=== PATIENT | male | born 1980 | race Caucasian/White ===

== ENCOUNTER 2018-07-25 20:35 | Inpatient (IN) | payer OTHER ==
[~2018-07-25] VITALS: Ht 193 cm; Wt 100.0 kg
--- NOTE | ~2018-07-25 | HEMODYNAMI ---
PATIENT:MUKUL HERNANDEZ MEDICAL RECORD: [id number] : 82 [id number] ADMISSION DATE: 07/25/18 Generatedon:07/26/20189:36 Patient name: MUKUL HERNANDEZ Patient #: [id number] SSN: : 1980 Date of study: 07/26/2018 Page: Of Hemodynamic Procedure Report Patient Data Patient Demographics Procedure consent was obtained First Name: MUKUL Gender: Male Last Name: MARY : 1980 Middle Initial: D Age: 38 year(s) Patient #: [id number] Race: Unknown Additional ID: [id number] Contact details Address: [address] [place] [address] State: [facility]: [place] Zip code: [address] Past Medical History Allergies: No known allergies Admission Admission Data Admission Date: 07/25/2018 Admission Time: 22:02 Room #: D.2122 Height (in.): 75.98 BSA: 2.31 (m2) Height (cm.): 193 BMI: 26.85 (kg/m2) Weight (lbs.): 220.46 Weight (kg.): 100 Lab Results Lab Result Date: 07/26/2018 Lab Result Time: 0:00 Biochemistry Name Units Result Min Max BUN mg/dl 13 --(--*-)-- 7 18 Creatinine mg/dl 1.1 --(--*-)-- 0.6 1.3 CBC Name Units Result Min Max Hematocrit % 38.7 *-(----)-- 42 54 Hemoglobin g/dl 13 -*(----)-- 13.5 17.5 Procedure Procedure Types Cath Procedure Diagnostic Procedure C [facility] w/Coronaries Procedure Description Procedure Date Procedure Date: 07/26/2018 Procedure Start Time: 9:22 Procedure End Time: 9:35 Procedure Staff Name Function Reg Dickerson MD Performing Physician Zenaida Hernández RT Monitor Cory Falcon RN Nurse Perla Counts RT Scrub Procedure Data Cath Procedure Fluoroscopy Diagnostic fluoroscopy Total fluoroscopy Time: 0.9 time: 0.9 min min Diagnostic fluoroscopy Total fluoroscopy dose: 273 dose: 273 mGy mGy Contrast Material Contrast Material Type Amount (ml) Isovue 300 31 Entry Location Entry Primary Successful Side Size Upsize Upsize Entry Closure Succes sful Closure Location (Fr) 1 (Fr) 2 (Fr) Remarks Device Remarks Femoral Right 5 Fr Exoseal artery Estimated blood loss: 5 ml Diagnostic catheters Device Type Used For End Catheter Placement MULTIPACK JL 4.0 5Fr Left Coronary catheter Angiography MULTIPACK 3DRC 5Fr Right Coronary catheter Angiography MULTIPACK Pigtail 5 Fr LV Angiography catheter Procedure Complications No complications Procedure Medications Medication Administration Route Dosage 0.9% NaCl I.V. 100 ml/hr Oxygen etCO2 Nasal cannula 2 l/min Heparin Flush Bag added to field 2 bags (1000units/500ml NS) Lidocaine 2% added to field 20 Versed I.V. 2 mg Fentanyl I.V. 100 mcg Versed I.V. 2 mg Versed I.V. 2 mg Hemodynamics Rest BSA: 2.31 (m2) O2 Consumption: Estimated: 288.75 (ml/min) O2 Consumption indexed : Estimated:125 (ml/min/m) Heart Rate: 75 (bpm) Pressure Samples Time Site Value (mmHg) Purpose Heart Use Rate(bpm) 9:27 LV 119/9,12 EDP 69 9:27 AO 107/70(89) Pullback 65 9:27 LV 112/10,11 Pullback 65 Gradients Valve Time Site 1 Site 2 Mean SEP/DFP Peak To Heart Use (mmHg) (sec/min) Peak Rate (mmHg) (bpm) Aortic 9:27 LV AO 4 15 5 65 112/10,11 107/70(89) Calculations Valve P-P Mean Valve Index Valve Source Name Gradient Area Flow (cm2) Aortic 5 4 5 4 Snapshots Pre Cath Intra NCS Post Cath Vital Signs Time Heart Resp SPO2 etCO2 NIBP (mmHg) Rhythm Pain Sedation Rate (ipm) (%) (mmHg) Status Level (bpm) 9:15:28 69 15 99 0 137/83(98) NSR 0 (11) 10(A) , No pain 9:19:42 64 14 79 32.1 126/86(108) NSR 0 (11) 10(A) , No pain 9:23:52 64 9 93 27.6 127/90(111) NSR 0 (11) 10(A) , No pain 9:28:08 68 12 92 40.4 118/72(95) NSR 0 (11) 9(A) , No pain 9:32:22 64 14 93 13.4 128/84(94) NSR 0 (11) 9(A) , No pain Medications Time Medication Route Dose Verified Delivered Reason Notes Effe ctiveness by by 9:14:47 0.9% NaCl I.V. 100 Cory Cory Per ml/hr Terrie Falcon physician RN RN 9:14:58 Oxygen etCO2 2 Cory Cory for low 02 Nasal l/min Lorigan Lorigan sats cannula RN RN 9:15:10 Heparin Flush added 2 Cory Cory used for Bag to bags Lorigan Lorigan procedure (1000units/500ml field RN RN NS) 9:15:20 Lidocaine 2% added 20ml Cory Cory for local to vial Lorigan Lorigan anesthetic field RN RN 9:19:14 Versed I.V. 2 mg Cory Cory for Lorigan Lorigan sedation RN RN 9:19:22 Fentanyl I.V. 100 Cory Cory for mcg Lorigan Lorigan sedation RN RN 9:20:37 Versed I.V. 2 mg Cory Cory for Lorigan Lorigan sedation RN RN 9:22:55 Versed I.V. 2 mg Cory Cory for Lorigan Lorigan sedation RN peanut cleaner Log Time Note 8:51:36 Time tracking: Call back (After hours or weekends) 8:51:40 Plan of Care:Hemodynamics will remain stable., Cardiac rhythm will remain stable., Comfort level will be maintained., Respiratory function will remain adequate., Patient/ family verbilizes understanding of procedure., Procedure tolerated without complication., Recovers from procedure without complications.. 8:55:25 Perla Pretty RT(R) sent for patient. Start room use. 8:56:18 Signed procedure consent form obtained from patient. 8:57:12 Patient allergic to No known allergies 8:57:44 Lab Result : BUN 13 mg/dl 8:57:44 Lab Result : Hemoglobin 13 g/dl 8:57:44 Lab Result : Creatinine 1.1 mg/dl 8:57:44 Lab Result : Hematocrit 38.7 % 8:57:54 Patient Weight : 220.46 lbs 8:57:59 Patient Height : 75.98 inches 9:03:29 Patient received from Med II to CCL 1 Alert and oriented. Tansferred to table in Supine position. 9:03:30 Warm blankets applied, and noemí hugger turned on for patient comfort. 9:03:30 Correct patient and procedure confirmed by team. 9:03:31 ECG and BP/O2 sat monitors applied to patient. 9:14:22 Vital chart was started 9:14:25 Rhythm: sinus rhythm 9:14:27 Full Disclosure recording started 9:14:47 0.9% NaCl 100 ml/hr I.V. was administered by Cory Falcon RN; Per physician; 9:14:52 H&P Date Dictated: 07/25/2018 Within 30 days and on chart.. 9:14:53 Pre-procedure instructions explained to patient. 9:14:54 Pre-op teaching completed and patient verbalized understanding. 9:14:55 Family in patients room. 9:14:57 Patient NPO since Midnight. 9:14:58 Oxygen 2 l/min etCO2 Nasal cannula was administered by Cory Falcon RN; for low 02 sats; 9:14:59 Is the patient allergic to Iodine/contrast media? No. 9:15:04 Is patient on blood thinner?No 9:15:06 Patient diabetic? No. 9:15:09 Previous problem with sedation/anesthesia? No ? 9:15:10 Heparin Flush Bag (1000units/500ml NS) 2 bags added to field was administered by Cory Falcon RN; used for procedure; 9:15:10 Snore? Yes 9:15:11 Sleep apnea? No 9:15:12 Deviated septum? No 9:15:12 Opens mouth fully? Yes 9:15:13 Sticks out tongue? Yes 9:15:15 Airway obstruction? No ? 9:15:16 Dentures? No ? 9:15:19 Pre procedure: right dorsailis pedis pulse 2+ Normal; easily identifiable; not easily obliterated 9:15:20 Lidocaine 2% 20ml vial added to field was administered by Cory Falcon RN; for local anesthetic; 9:15:20 Patient pain scale 0/10 ?. 9:15:25 IV patent on arrival in right wrist with 0.9% NaCl at KVO. 9:15:27 Lab results completed and on chart. 9:15:31 Right groin area was prepped with chlora-prep and draped in sterile fashion 9:15:32 Alarms reviewed by R. N. 9:15:32 Sharps counted by scrub and verified by R.N. 9:15:36 Final Timeout: patient, procedure, and site verified with staff and physician. All members of the team are in agreement. 9:15:39 Right groin site verified by team. 9:15:44 Maximum allowable Isovue 300 dose 300ml. Physician notified. (300ml for normal creatinines. For patients with creatinine of 1.7 or higher multiply weight(kg) x 5 divided by creatinine.) 9:15:48 Fire Safety Assessment: A--An alcohol-based skin anteseptic being used preoperatively., C--Open oxygen or nitrous oxide is being used., D--An ESU, laser, or fiber-optic light is being used. 9:15:51 Physical assessment completed. ASA score P 2 - A patient with mild systemic disease as per Reg Dickerson MD. 9:15:54 Sedation plan: IV Moderate Sedation Medication:Versed, Fentanyl 9:18:28 Use device set Femoral Dx 9:18:29 ACIST Syringe (01369) opened to sterile field. 9:18:30 Bag Decanter (2002) opened to sterile field. 9:18:30 Medline Cath Pack ([id number]) opened to sterile field. 9:18:31 DIAGNOSTIC WIRE .035 260cm J wire (371911) opened to sterile field. 9:18:32 ACIST Hand Control (17973) opened to sterile field. 9:18:32 ACIST Manifold (64824) opened to sterile field. 9:18:33 DIAGNOSTIC Multipack 5Fr catheter set ([id number]) opened to sterile field. 9:18:33 Tegaderm 4 x 4 (1626W) opened to sterile field. 9:18:34 SHEATH 5FR [place] (BHD415) opened to sterile field. 9:19:14 Versed 2 mg I.V. was administered by Cory Falcon RN; for sedation; 9:19:22 Fentanyl 100 mcg I.V. was administered by Cory Falcon RN; for sedation; 9:20:37 Versed 2 mg I.V. was administered by Cory Falcon RN; for sedation; 9::23 Zero performed for pressure channel P1 9::27 Zero performed for pressure channel P1 9::29 Zero performed for pressure channel P1 9::33 Zero performed for pressure channel P1 9::41 Procedure started. 9:22:45 Local anesthetic to right femoral artery with Lidocaine 2% by Reg Dickerson MD.INITIAL ACCESS ONLY 9::54 A 5 Fr sheath was inserted into the Right Femoral artery 9::55 Versed 2 mg I.V. was administered by Cory Falcon RN; for sedation; 9:23:19 Baseline sample Acquired. 9:24:05 A MULTIPACK JL 4.0 5Fr catheter was advanced over the wire and used for Left Coronary Angiography. 9:25:18 Catheter removed. 9:25:23 A MULTIPACK 3DRC 5Fr catheter was advanced over the wire and used for Right Coronary Angiography. 9:26:07 Catheter removed. 9:26:36 A MULTIPACK Pigtail 5 Fr catheter was advanced over the wire and used for LV Angiography. 9:27:16 LV gram done using MCINTYRE 9:27:17 LV hemodynamics recorded. 9:27:19 Injector settings: Ml/sec: 10, Volume: 20, 9:27:31 EF : 40 % 9:27:59 Catheter removed. 9:28:41 Sheath removed intact; hemostasis achieved with Exoseal to the Right Femoral artery. 9:28:43 Procedure ended.(Physican Out) 9:29:34 Fluoroscopy time 00.90 minutes. 9::38 Flurop Dose total: 273 9::38 Fluoroscopy dose: 273 mGy 9::41 Contrast amount:Isovue 300 31ml. 9:29:42 Sharps counted by scrub and verified by R.N. 9::44 Insertion/operative site no bleeding no hematoma. 9:29:46 Post-op/insertion site Right Femoral artery dressed using a 4 x 4 and Tegaderm. 9:29:49 Post right femoral artery:stable, clean and dry 9:29:51 Post Procedure Pulses reassessed and unchanged 9:29:54 Post-procedure physical assessment completed. ASA score P 2 - A patient with mild systemic disease as per Reg Dickerson MD. 9:29:56 Post procedure rhythm: unchanged. 9:29:58 Estimated blood loss: 5 ml 9:30:00 Post procedure instruction explained to patient.Patient verbalizes understanding. 9:30:00 Patient needs reinforcement of post procedure teaching. 9:31:01 Procedure Complication : No complications 9:31:04 See physician's report for complete and final results. 9:31:11 EXOSEAL 5Fr (EX500) opened to sterile field. 9:32:10 Procedure and supply charges have been captured, reviewed, submitted and are correct. 9:35:40 Vital chart was stopped 9:35:42 Report given to PCU. 9:35:45 Patient transfered to PCU with Bed. 9:35:51 Procedure ended. 9:35:51 Full Disclosure recording stopped 9:35:54 End room use (Document Last) Device Usage Item Name Manufacture Quantity Catalog Hospital Part Current Minimal L ot# / Number Charge Number Stock Stock Serial# Code ACIST Acist 1 31410 [id number] 644414 159751 20 Syringe Medical (83367) Systems Inc Bag Microtek 1 568013 11202 903562 5 Decanter Medical Inc. () Medline Medline 1 [id number] 991461 73030 755836 5 Cath Pack ([id number]) DIAGNOSTIC St Fredi 1 408019 942769 310162 423372 30 WIRE .035 260cm J wire (264983) ACIST Hand Acist 1 64623 241805 311464 116612 5 Control Medical (07253) Systems Inc ACIST Acist 1 38649 688922 476184 410019 5 Manifold Medical (44451) Systems Inc DIAGNOSTIC Cardinal 1 [id number] 678982 64562 428178 30 Multipack Health 5Fr catheter set (VS5080) Tegaderm 4 3M 1 1626W 353295 312444 330746 5 x 4 (1626W) SHEATH 5FR Terumo 1 FRY873 001307 876915 493364 5 [place] (AFC547) MULTIPACK Cardinal 1 317779 5 JL 4.0 5Fr Health catheter MULTIPACK Cardinal 1 184597 5 3DRC 5Fr Health catheter MULTIPACK Cardinal 1 155013 5 Pigtail 5 Health Fr catheter EXOSEAL 5Fr Cardinal 1 EX500 347877 846266 589195 10 (EX500) Health Signature Audit [place] Stage Time Signature Unsigned Intra-Procedure 07/26/2018 Perla 9:36:07 AM Counts RT(R) Signatures Monitor : Zenaida Hernández Signature : RT Date : Time : [address] [address]
[2018-07-25] MEDS ORDERED: OMEPRAZOLE20 M1 PO (20:40)
[2018-07-25 21:07] LABS: BASOPHILS 0.4 % (0-2); HEMATOCRIT 41.6 % (42.0-54.0); IMMATURE GRANULOCYTES 0.4 % (0-5); MCH 29.4 pg (26.0-34.0); MCHC 33.7 g/dL (31.0-37.0); MCV 87.2 fL (80.0-100.0); MEAN PLATELET VOLUME 9.5 fL (7.4-10.4); MONOCYTES 7.7 % (2-11); NEUTROPHILS 55.5 % (40-80); PLATELET COUNT 245 10x3/uL (130-400); RBC 4.77 10x6/uL (4.20-6.10); RDW 13.3 % (11.5-14.5)
[2018-07-25 21:23] LABS: ALBUMIN 4.1 g/dL (3.4-5.0); ALKALINE PHOSPHATASE 59 U/L (46-116); ALT (SGPT) 99 U/L (10-68); BILIRUBIN - TOTAL 0.56 mg/dL (0.2-1.3); CALC OSMOLALITY 281 mosm/kg (275-300); CALCIUM 9.1 mg/dL (8.5-10.1); CHLORIDE - SERUM 104 mmol/L (98-107); CREATININE - SERUM 1.1 mg/dL (0.6-1.3); GLUCOSE 101 mg/dL (74-106); POTASSIUM - SERUM 4.1 mmol/L (3.5-5.1); SODIUM 141 mmol/L (136-145); UREA NITROGEN 14 mg/dL (7-18); eGFR NON AFRICAN AMERICAN 80 mL/min (90-120)
--- NOTE | 2018-07-25 21:27 | NUR ---
PT INFORMED THAT WE NEEDED A URINE SAMPLE, PT WAS GIVEN A CUP AND INSTRUTED TO LET STAFF KNOW IF HE GETS A SAMPLE
[2018-07-25 21:38] LABS: AMYLASE - SERUM 61 U/L (25-115); LIPASE 107 U/L (73-393)
[2018-07-25 21:40] LABS: TROPONIN-I 0.186 ng/mL (0.000-0.060)
[2018-07-25 22:09] LABS: APPEARANCE CLEAR (CLEAR); BILIRUBIN NEGATIVE (NEGATIVE); COLOR YELLOW (YELLOW); GLUCOSE NEGATIVE (NEGATIVE); KETONE NEGATIVE (NEGATIVE); NITRITE NEGATIVE (NEGATIVE); PROTEIN NEGATIVE (NEGATIVE); RED CELLS - URINE RARE /hpf (0-5); SPECIFIC GRAVITY 1.005 (1.005-1.020); UROBILINOGEN NORMAL (NORMAL); WHITE CELLS - URINE RARE /hpf (0-5)
[2018-07-25 22:10] LABS: AMORPHOUS SEDIMENT <1+ /lpf (NONE SEEN); BACTERIA FEW /hpf (NONE SEEN)
--- NOTE | 2018-07-25 22:54 | NUR ---
PT BACK FROM CT, AWAITING FOR RESULTS BEFORE ADMISSION
[2018-07-25 23:04] VITALS: BP 122/80
[2018-07-26] VITALS: BP 110/57
--- NOTE | 2018-07-26 00:33 | NUR ---
PT RECEIVED VIA WHEELCHAIR, HISTORY AND AMISSION COMPLETE, IV-RFA-NS @125, PT DENIES ANY NEEDS AT THIS TIME, BED IS LOW, SRX 2, CALL LIGHT IN REACH, WILL CONTINUE PLAN OF CARE
[2018-07-26 02:08] VITALS: BP 110/57; Ht 193 cm; Wt 100.0 kg
[2018-07-26 03:33] LABS: BASOPHILS 0.3 % (0-2); EOSINOPHILS 1.2 % (0-7); HEMATOCRIT 38.7 % (42.0-54.0); IMMATURE GRANULOCYTES 0.3 % (0-5); MCH 29.1 pg (26.0-34.0); MCHC 33.6 g/dL (31.0-37.0); MCV 86.6 fL (80.0-100.0); MEAN PLATELET VOLUME 9.3 fL (7.4-10.4); MONOCYTES 5.5 % (2-11); NEUTROPHILS 65.7 % (40-80); PLATELET COUNT 224 10x3/uL (130-400); RBC 4.47 10x6/uL (4.20-6.10); RDW 13.4 % (11.5-14.5); WBC 7.8 10x3/uL (4.8-10.8)
[2018-07-26 04:00] VITALS: BP 104/46
[2018-07-26 04:21] LABS: ALBUMIN 3.5 g/dL (3.4-5.0); ALKALINE PHOSPHATASE 49 U/L (46-116); ALT (SGPT) 90 U/L (10-68); BILIRUBIN - TOTAL 0.48 mg/dL (0.2-1.3); CALC OSMOLALITY 278 mosm/kg (275-300); CALCIUM 8.4 mg/dL (8.5-10.1); CARBON DIOXIDE 26.1 mmol/L (21.0-32.0); CHLORIDE - SERUM 106 mmol/L (98-107); CKMB 0.9 U/L (0.0-3.6); CREATINE KINASE 183 UL (21-232); CREATININE - SERUM 1.1 mg/dL (0.6-1.3); GLUCOSE 112 mg/dL (74-106); POTASSIUM - SERUM 3.9 mmol/L (3.5-5.1); SODIUM 139 mmol/L (136-145); UREA NITROGEN 13 mg/dL (7-18); eGFR NON AFRICAN AMERICAN 80 mL/min (90-120)
[2018-07-26 04:22] LABS: TROPONIN-I 0.209 ng/mL (0.000-0.060)
[2018-07-26 08:20] VITALS: BP 112/56
--- NOTE | 2018-07-26 09:00 | NUR ---
TO SPRAY STAINER PER BED
[2018-07-26 09:36] LABS: CALC OSMOLALITY 280 mosm/kg (275-300); CALCIUM 9.1 mg/dL (8.5-10.1); CARBON DIOXIDE 28.9 mmol/L (21.0-32.0); CHLORIDE - SERUM 104 mmol/L (98-107); CREATININE - SERUM 1.1 mg/dL (0.6-1.3); GLUCOSE 97 mg/dL (74-106); POTASSIUM - SERUM 4.2 mmol/L (3.5-5.1); SODIUM 141 mmol/L (136-145); UREA NITROGEN 13 mg/dL (7-18); eGFR NON AFRICAN AMERICAN 80 mL/min (90-120)
--- NOTE | 2018-07-26 10:00 | NUR ---
BACK FROM DIE SETTER. V/S STABLE. RIGHT GROIN SOFT WITH DRSG DRY AND INTACT. TELEMERTY SHOWS SR. FAMILY AT BEDSIDE.
[2018-07-26 12:10] VITALS: BP 104/52
--- NOTE | 2018-07-26 12:10 | NUR ---
RIGHT GROIN SOFT WITH DRSG DRY AND INTACT. PT UP FOR LUNCH. NO NEEDS VOICED
--- NOTE | 2018-07-26 12:41 | NUR ---
ALERT AND ORIENTED. DENIES ANY PAIN. TELEMERTY SHOWS SR, SB. ON ROOM AIR. IV TO RIGHT FA PATENT . WILL MONITOR
[2018-07-26] MEDS ORDERED: COZAAR50 MG PO (13:39)
--- NOTE | 2018-07-26 14:41 | NUR ---
I have reviewed this patient and I concur with the Shift Assessment completed by the Licensed Practical Nurse today this shift.
[2018-07-26 14:52] VITALS: BP 118/61
--- NOTE | 2018-07-26 15:33 | NUR ---
PT DCD. IV DCD WITH TIP INTACT.INSTRUCTIONS GIVEN TO PT AND FRIEND. TO PRIVATE CAR PER WHEEL CHAIR
--- NOTE | 2018-07-27 09:32 | MORECARE ---
CASE MANAGEMENT DISCHARGE SUMMARY PATIENT: MUKUL HERNANDEZ UNIT: [id number] ADM DATE: 07/25/18 AGE: 38 : [birth year] SEX: M ROOM/BED: D.2122 AUTHOR: PIEDAD HARO PHYSICIAN: REFERRING PHYSICIAN: SHANNON RIVERA MD DATE OF SERVICE: 07/27/18 Discharge Plan Patient Name: MUKUL HERNANDEZ Facility: [facility]:[place] : 1980 Planned Disposition: Home Anticipated Discharge Date: 07/26/18 Discharge Date: 07/26/2018 Expected LOS: 1 Initial Reviewer: [email or web address] Initial Review Date: 07/27/2018 Generated: 07/27/18 10:32 am Patient Name: MUKUL HERNANDEZ Page 38027 at 0932 All edits/amendments must be made on the electronic document DICTATION DATE: 07/27/18930 TRAIL MAINTENANCE WORKER: [email or web address] 07/27/18930 RPT#: [id number] DC DATE:07/26/18 STATUS: DIS IN [facility] [address] [place] [address] END OF REPORT
--- NOTE | 2018-07-28 13:13 | OP ---
PATIENT NAME: MUKUL HERNANDEZ MEDICAL RECORD: [id number] :82 LOCATION:D.M2 D.2 ADMISSION DATE:07/25/18 SURGEON: NICOLE BOLAND MD DATE OF OPERATION: 07/26/2018 PROCEDURE: Left heart catheterization, selective coronary angiography, right femoral artery approach. CATHETERS: A 5-Luxembourgish sheath, 5/4 left and right Michael, 5/4 pig. The procedure was well tolerated. The patient was returned to [place]. Sheath was removed. ExoSeal device was placed. FINDINGS: Left ventriculography on 30-degree MCINTYRE view shows global hypo with EF of 40%. CORONARY ANATOMY: LEFT MAIN: Left main is free of disease. LAD: Free of disease in the diagonal system. CIRCUMFLEX: Free of disease in the marginal system. RIGHT CORONARY ARTERY: Dominant artery, gives rise to PDA, free of disease. IMPRESSION: Nonischemic cardiomyopathy, global insult explained elevated trop. We will begin ARB. We could consider Coreg, etc. as outpatient titration. TRANSINT:[id number] Voice Confirmation ID: [id number] DOCUMENT ID: [id number] NICOLE BOLAND MD at 1313 CC: [id number] DICTATION DATE: 07/26/18 0937 ASSIGNMENT EDITOR: 07/26/18 1608 DIS IN 07/26/18 [address] [place] [address]
--- NOTE | 2018-07-28 13:13 | CN ---
PATIENT NAME:MUKUL HERNANDEZ MEDICAL RECORD: [id number] : 82 LOCATION:[facility] D.2122 ADMIT DATE: 07/25/18 ACCOUNT: [id number] CONSULTING PHYSICIAN: NICOLE BOLAND MD REFERRING PHYSICIAN: SHANNON RIVERA MD DATE OF CONSULTATION: 07/26/2018 HISTORY: A 38-year-old gentleman with no known history of coronary artery disease. He really has been quite healthy. In the last 2 days, he has been having intermittent nausea, fullness in the abdomen, questionable fever and chills, and irritation slightly to the throat. He tried flds-gse-xyrwbrc antacids and H2 blockers. He finally presented to the ER. He was found to have elevated cardiac enzymes. These have elevated further with troponin of 0.209. No family history of coronary artery disease. No other significant risk factors besides typical 38-year-old diet, who travels for work. We are asked to see him concerning his cardiovascular status. PAST MEDICAL HISTORY: Unremarkable. ALLERGIES: None known. MEDICATIONS: None chronically. SOCIAL HISTORY: Works 8 on/6 off. No set exercise program. REVIEW OF SYSTEMS: The patient reports easy bruising but reports no swollen glands. The patient reports no fever, no night sweats, no significant weight gain, no significant weight loss. No significant exercise tolerance. The patient reports no dry eyes, no irritation, no vision change. Patient reports no difficulty hearing and no ear pain. Patient reports no frequent nose bleeds or nose and sinus problems. Patient reports on arm pain on exertion. No shortness of breath while lying down. No history of heart murmur. Patient reports no cough, no wheezing or coughing up blood. Patient reports no abdominal pain, no vomiting. Normal appetite. No diarrhea and not vomiting blood. No nausea and no constipation. Patient reports no incontinence. No difficulty urinating. No hematuria. No increased frequency. Patient reports no muscle aches. No weakness, no arthralgias, no back pain. No swelling of the extremities. Patient reports no abnormal mole, no jaundice, no rashes. Reports no loss of consciousness. No weakness and no numbness. No seizures, dizziness, or headaches. The patient reports no depression, no sleep disturbance, feeling safe in a relationship and no alcohol abuse. Patient reports on fatigue. Reports no runny nose or sinus pressure. No itching, no hives, and no frequent sneezing. PHYSICAL EXAMINATION: GENERAL: Pleasant gentleman, in no acute distress, appears stated age. VITAL SIGNS: Blood pressure 112/56. Pulse 55 and regular. HEENT: Normocephalic and atraumatic. NECK: No JVD or bruit. HEART: Regular. LUNGS: Hernández are clear. ABDOMEN: Soft and nontender. EXTREMITIES: 2+ edema. NEUROLOGIC: Grossly intact. CONSULT REPORT [id number] MUKUL HERNANDEZ DIAGNOSTIC DATA: ECG shows no acute changes. IMPRESSION: Acute coronary syndrome/NSTEMI with atypical presentation. PLAN: Angiography and intervention based on above. TRANSINT:[id number] Voice Confirmation ID: [id number] DOCUMENT ID: [id number] NICOLE BOLAND MD at 1313 CC: [id number] DICTATION DATE: 07/26/18916 DIRECTOR POST: 07/26/18 1605 DIS IN 07/26/18 [address] [place] [address]
== END 2018-07-26 15:35 | disposition home or self-care (01) | DRG 287 ==
LOC: D.ER 20:35 → D.M2 22:02
PROVIDERS: Family Medicine; Internal Medicine Interventional Cardiology; ADMIT Family Medicine; ATTEND Family Medicine
PROC: B2151ZZ Fluoroscopy of Left Heart using Low Osmolar Contrast (ICD-10-PCS; 2018-07-26)
PROC: 4A023N7 Measurement of Cardiac Sampling and Pressure, Left Heart, Percutaneous Approach (ICD-10-PCS; 2018-07-26)
PROC: B2111ZZ Fluoroscopy of Multiple Coronary Arteries using Low Osmolar Contrast (ICD-10-PCS; principal; 2018-07-26 08:55)
DX: I20.9 Angina pectoris, unspecified (principal); I42.9 Cardiomyopathy, unspecified; R10.9 Unspecified abdominal pain; R79.89 Other specified abnormal findings of blood chemistry; K21.9 Gastro-esophageal reflux disease without esophagitis